=== PATIENT | female | born 1940 | race African-American/Black ===

== ENCOUNTER 2016-10-09 16:07 | Emergency (ER) | payer OTHER ==
[~2016-10-09] VITALS: Ht 167.6 cm; Wt 70.0 kg
[~2016-10-09 16:07] MED LIST: IOHEXOL-300 100 ML BOTTLE ONE; SODIUM CHLORIDE 0.9% 10ML VIAL ONE
[2016-10-09] MEDS ORDERED: SODIUM CHLORIDE 0.9% 500 ML IV ONE (17:30)
[2016-10-09 18:04] LABS: BASOPHILS % 0.6 % (0.0-2.0); EOSINOPHILS % 0.8 % (0.0-5.0); HEMATOCRIT. 37.4 % (36.0-48.0); LYMPHOCYTES % 7.5 % (20.0-50.0); MEAN CORPUSCULAR HEMOGLOBIN 27.8 pg (28.0-32.0); MEAN CORPUSCULAR HGB CONC 32.1 g/dL (31.0-37.0); MEAN CORPUSCULAR VOLUME 86.6 fL (81.0-99.0); MEAN PLATELET VOLUME 7.8 fl (7.4-10.4); MONOCYTES % 5.5 % (2.0-8.0); NEUTROPHILS % 85.6 % (40.0-76.0); PLATELET 244 x1000/uL (130-400); RED BLOOD CELL COUNT 4.32 mill/uL (4.2-5.4); RED CELL DISTRIBUTION WIDTH 15.2 % (11.6-14.6); WHITE BLOOD COUNT 14.6 x1000/uL (4.5-11.0)
[2016-10-09 18:10] LABS: PARTIAL THROMBOPLASTIN TIME 22.8 sec (24.0-34.0); PROTHROMBIN TIME 10.8 sec
[2016-10-09 18:18] LABS: ALANINE AMINOTRANSFERASE 16 IU/L (13-61); ALBUMIN 3.5 g/dL (3.4-5.0); ANION GAP 12; CALCIUM 9.3 mg/dL (8.5-10.1); CARBON DIOXIDE 26 mEq/L (21-32); CHLORIDE 109 mEq/L (98-107); INDEX HEMOLYSI 1 (1-3); INDEX ICTERIC 1 (1-4); INDEX LIPEMIC 1 (1-3); TROPONIN I < 0.02 ng/mL (0.00-0.04); UREA NITROGEN BLOOD 20 mg/dL (7-21); eGFR > 60 mL/min (>60)
[2016-10-09] MEDS ORDERED: LEVOFLOXACIN 500MG PREMIX 100 ML IV ONE (20:30)
[2016-10-09] MEDS ORDERED: LEVOFLOXACIN 500MG TABLET PO NR (20:45)
[2016-10-09 20:54] VITALS: BP 161/77
== END 2016-10-09 21:30 | disposition short-term general hospital (02) ==
LOC: ER 16:09
DX: R55 Syncope and collapse (principal); D72.829 Elevated white blood cell count, unspecified; I10 Essential (primary) hypertension; F03.90 Unspecified dementia, unspecified severity, without behavioral disturbance, psychotic disturbance, mood disturbance, and anxiety; F17.200 Nicotine dependence, unspecified, uncomplicated; R61 Generalized hyperhidrosis; E86.0 Dehydration; Z91.19 Patient's noncompliance with other medical treatment and regimen; D72.0 Genetic anomalies of leukocytes; D72.810 Lymphocytopenia; E87.8 Other disorders of electrolyte and fluid balance, not elsewhere classified
CPT/HCPCS: 36415; 70450; 71010; 71260; 80053; 82962; 84484; 85025; 85610; 85730; 87040; 93005; 99285; A4216; J7040; Q9967; Z7610

== ENCOUNTER 2023-01-17 17:42 | Inpatient (IN) | payer MEDICAID, OTHER ==
[~2023-01-17] VITALS: Ht 160 cm; Wt 58.5 kg
[2023-01-17] MEDS ORDERED: LORAZEPAM 2MG/ML CPJ IM PRN (18:00)
[2023-01-17] MEDS ORDERED: HALOPERIDOL LACTATE 5MG/ML VIAL IM ONE (18:00)
[2023-01-17] MEDS ORDERED: SODIUM CHLORIDE 0.9% 500 ML IV ONE (18:15)
[2023-01-17 20:31] LABS: HEMATOCRIT. 37.5 % (36.0-48.0); HEMOGLOBIN. 12.3 g/dL (12.0-16.0); MEAN CORPUSCULAR HEMOGLOBIN 30.1 pg (28.0-32.0); MEAN CORPUSCULAR HGB CONC 32.8 g/dL (31.0-37.0); MEAN CORPUSCULAR VOLUME 91.7 fL (81.0-99.0); MEAN PLATELET VOLUME 8.5 fl (7.4-10.4); PLATELET 162 x1000/uL (130-400); RED BLOOD CELL COUNT 4.09 mill/uL (4.2-5.4); RED CELL DISTRIBUTION WIDTH 14.4 % (11.6-14.6); WHITE BLOOD COUNT 12.9 x1000/uL (4.5-11.0)
[2023-01-17 20:34] LABS: DIFFERENTIAL COMMENT 1
[2023-01-17 20:41] LABS: INR 1.1; PROTHROMBIN TIME 11.4 sec (9.6-11.0)
[2023-01-17 20:43] LABS: CHLORIDE 113 mEq/L (98-107); INDEX HEMOLYSI 1 (1-3); INDEX ICTERIC 1 (1-4); INDEX LIPEMIC 1 (1-3); POTASSIUM 3.7 mEq/L (3.5-5.1); SODIUM 142 mEq/L (136-145)
[2023-01-17 20:56] LABS: ALANINE AMINOTRANSFERASE 19 IU/L (13-61); ALBUMIN 3.8 g/dL (3.4-5.0); ASPARTATE AMINOTRANSFERASE 29 IU/L (15-37); BILIRUBIN TOTAL 1.4 mg/dL (0.1-1.0); CALCIUM 9.3 mg/dL (8.5-10.1); CARBON DIOXIDE 26 mEq/L (21-32); CREATININE 0.9 mg/dL (0.6-1.3); ETHANOL BLOOD < 10 mg/dL (-10); GLUCOSE 103 mg/dL (70-105); PROTEIN TOTAL 7.8 g/dL (6.0-8.3); UREA NITROGEN BLOOD 16 mg/dL (7-21)
[2023-01-17] MEDS ORDERED: HYDRALAZINE 20MG/ML VIAL IV PRN (21:00)
[2023-01-17 21:10] LABS: PLATELET ESTIMATE NORMAL
[2023-01-17] MEDS ORDERED: IPRATROPIUM/ALBUTEROL 0.5-3(2.5)MG/3ML NEB HHN PRN (21:15)
[2023-01-17] MEDS ORDERED: ACETAMINOPHEN 650MG/20.3ML UDC GT PRN (21:15)
[2023-01-17] MEDS ORDERED: ONDANSETRON HCL 4MG/2ML INJ IV PRN (21:15)
[2023-01-17] MEDS ORDERED: GUAIFENESIN 200MG/10ML SUGAR FREE UDC PO PRN (21:15)
[2023-01-17] MEDS ORDERED: MAGNESIUM/ALUMINUM HYDROXIDE/SIMETHICONE 30ML UDC PO PRN (21:15)
[2023-01-17] MEDS ORDERED: DOCUSATE SODIUM 100MG CAPSULE PO PRN (21:15)
[2023-01-17 21:38] LABS: TROPONIN I HIGH SENSITIVITY 26 ng/L (<54)
[2023-01-17 21:48] LABS: CHLORIDE 114 mEq/L (98-107); INDEX HEMOLYSI 1 (1-3); INDEX ICTERIC 1 (1-4); INDEX LIPEMIC 1 (1-3); POTASSIUM 3.7 mEq/L (3.5-5.1); SODIUM 142 mEq/L (136-145)
[2023-01-17 21:55] LABS: CARBON DIOXIDE 24 mEq/L (21-32); CREATININE 0.9 mg/dL (0.6-1.3); GLUCOSE 103 mg/dL (70-105); PHOSPHORUS 2.6 mg/dL (2.5-4.9); UREA NITROGEN BLOOD 15 mg/dL (7-21)
[2023-01-17] MEDS: FAMOTIDINE 20MG TABLET PO SCH (22:46)
[2023-01-17] MEDS: CLONIDINE 0.1MG TABLET PO PRN (22:47)
[2023-01-17] MEDS ORDERED: VANCOMYCIN 1G PREMIX 200 ML IV NR (23:45)
[2023-01-17] MEDS ORDERED: PIPERACILLIN/TAZ 3.375G PREMIX 50 ML IV NR (23:45)
[2023-01-18] VITALS (7 sets, daily range): BP systolic 147–194; BP diastolic 59–83; PULSE 65–72; RESP 16–19; TEMP 96.3–99.5
[2023-01-18 04:03] LABS: TROPONIN I HIGH SENSITIVITY 47 ng/L (<54)
[2023-01-18] MEDS ORDERED: PIPERACILLIN/TAZOBACTAM 3.375 G in DEXTROSE 5% WATER 50 ML IV SCH (06:00)
[2023-01-18 08:03] LABS: BASOPHILS % 0.5 % (0.0-2.0); EOSINOPHILS % 1.3 % (0.0-5.0); HEMATOCRIT. 37.2 % (36.0-48.0); HEMOGLOBIN. 12.5 g/dL (12.0-16.0); LYMPHOCYTES % 12.2 % (20.0-50.0); MEAN CORPUSCULAR HEMOGLOBIN 30.4 pg (28.0-32.0); MEAN CORPUSCULAR HGB CONC 33.5 g/dL (31.0-37.0); MEAN CORPUSCULAR VOLUME 90.8 fL (81.0-99.0); MEAN PLATELET VOLUME 8.8 fl (7.4-10.4); MONOCYTES % 8.2 % (2.0-8.0); NEUTROPHILS % 77.8 % (40.0-76.0); PLATELET 164 x1000/uL (130-400); RED CELL DISTRIBUTION WIDTH 14.4 % (11.6-14.6); WHITE BLOOD COUNT 9.3 x1000/uL (4.5-11.0)
[2023-01-18] MEDS: LOSARTAN POTASSIUM 25 MG TABLET PO SCH (09:28)
[2023-01-18 09:32] LABS: T4 FREE 1.23 ng/dL (0.76-1.46); THYROID STIMULATING HORMONE 1.3 uIU/mL (0.36-3.74)
[2023-01-18] MEDS ORDERED: HALOPERIDOL 5MG TABLET PO PRN (16:45)
[2023-01-18] MEDS: PIPERACILLIN/TAZOBACTAM 3.375 G in DEXTROSE 5% WATER 50 ML IV SCH ×2 (18:23→22:00)
[2023-01-18] MEDS: VANCOMYCIN 750MG PREMIX 150 ML IV SCH (19:00)
[2023-01-18] MEDS: FAMOTIDINE 20MG TABLET PO SCH (21:03)
[2023-01-19] VITALS: BP 166/80; PULSE 66; RESP 20; TEMP 97.5
[2023-01-19 00:24] LABS: TROPONIN I HIGH SENSITIVITY 36 ng/L (<54)
[2023-01-19 00:30] LABS: AMMONIA 41 uMol/L (<32)
[2023-01-19 04:00] VITALS: BP 160/70; PULSE 78; RESP 19; TEMP 98.2
[2023-01-19] MEDS: PIPERACILLIN/TAZOBACTAM 3.375 G in DEXTROSE 5% WATER 50 ML IV SCH (06:03)
[2023-01-19] MEDS: CLONIDINE 0.1MG TABLET PO PRN (06:07)
[2023-01-19 07:45] LABS: INDEX HEMOLYSI 1 (1-3)
[2023-01-19 07:48] LABS: AMMONIA 18 uMol/L (<32)
[2023-01-19 08:00] VITALS: BP 165/75; PULSE 58; RESP 18; TEMP 96.8
[2023-01-19 08:20] LABS: TROPONIN I HIGH SENSITIVITY 36 ng/L (<54)
[2023-01-19] MEDS ORDERED: MEMANTINE HCL 5MG TABLET PO SCH (09:00)
[2023-01-19] MEDS ORDERED: LEVETIRACETAM 250MG TABLET PO SCH (09:00)
[2023-01-19 09:36] LABS: INDEX HEMOLYSI 1 (1-3)
[2023-01-19] MEDS: LOSARTAN POTASSIUM 25 MG TABLET PO SCH (09:37)
[2023-01-19 10:14] LABS: FOLIC ACID (FOLATE) SERUM >20 ng/mL ng/mL (>5.38); VITAMIN B12 SERUM 758 pg/mL (211-911)
[2023-01-19 12:00] VITALS: BP 160/66; PULSE 70; RESP 19; TEMP 96.6
[2023-01-19] MEDS: VANCOMYCIN 750MG PREMIX 150 ML IV SCH (12:12)
[2023-01-19] MEDS ORDERED: KEPP500 MT (13:41)
[2023-01-19 15:02] VITALS: BP 160/66; PULSE 70; TEMP 96.6; O2SAT 95
[2023-01-19 16:00] VITALS: BP 160/60; PULSE 63; RESP 18; TEMP 96.5
[2023-01-19 17:29] LABS: TROPONIN I HIGH SENSITIVITY 27 ng/L (<54)
== END 2023-01-19 16:30 | disposition home or self-care (01) | DRG 720 ==
LOC: ER 17:42 → 6EST 21:17 → EDBEDREQ 21:20 → 6EST 23:04
PROVIDERS: ADMIT Hospitalist; ATTEND Hospitalist
DX: A41.9 Sepsis, unspecified organism (principal); J69.0 Pneumonitis due to inhalation of food and vomit; G93.41 Metabolic encephalopathy; I50.33 Acute on chronic diastolic (congestive) heart failure; I27.20 Pulmonary hypertension, unspecified; I11.0 Hypertensive heart disease with heart failure; T67.01XA Heatstroke and sunstroke, initial encounter; F03.90 Unspecified dementia, unspecified severity, without behavioral disturbance, psychotic disturbance, mood disturbance, and anxiety; I16.1 Hypertensive emergency; F17.210 Nicotine dependence, cigarettes, uncomplicated; I08.3 Combined rheumatic disorders of mitral, aortic and tricuspid valves; D32.0 Benign neoplasm of cerebral meninges; T46.5X6A Underdosing of other antihypertensive drugs, initial encounter; Z96.659 Presence of unspecified artificial knee joint; Y92.89 Other specified places as the place of occurrence of the external cause; Z86.73 Personal history of transient ischemic attack (TIA), and cerebral infarction without residual deficits; Z87.440 Personal history of urinary (tract) infections; Z78.1 Physical restraint status; Z80.3 Family history of malignant neoplasm of breast; Z83.3 Family history of diabetes mellitus; Z98.891 History of uterine scar from previous surgery; X30.XXXA Exposure to excessive natural heat, initial encounter; Y93.89 Activity, other specified; Y99.8 Other external cause status
CPT/HCPCS: 36415; 70551; 71045; 76604; 80048; 80053; 80061; 80320; 82140; 82607; 82746; 83036; 83605; 83735; 83880; 84100; 84145; 84439; 84443; 84484; 85025; 92610; 93005; 93306; 93970; 99285; C1893; J0360; J1630; J2060; J2543; J3370; J7030; J7060; G0480